=== PATIENT | female | born 2000 | race Caucasian/White ===

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

== ENCOUNTER 2018-01-27 23:24 | Emergency (ER) | payer MEDICAID ==
[~2018-01-27] VITALS: Ht 157.5 cm; Wt 47.1 kg
[~2018-01-27 23:24] MED LIST changes: +IBUP-1222 PO
[2018-01-28] MEDS ORDERED: ONDANSETRON ODT 4 MG PO ONE
[2018-01-28] MEDS ORDERED: MORPHINE SULFATE 4 MG/ML, 1ML IVPush PRN
[2018-01-28] MEDS ORDERED: ONDANSETRON ODT 4 MG ONE (00:22)
[2018-01-28] MEDS ORDERED: MORPHINE SULFATE 4 MG/ML, 1ML ONE (00:22)
[2018-01-28 00:25] LABS: HCG UR SG > 1.030 (1.003-1.030)
[2018-01-28 02:38] VITALS: BP 97/49
== END 2018-01-28 02:40 | disposition home or self-care (01) ==
LOC: ED 23:48
DX: S80.211A Abrasion, right knee, initial encounter (principal); S30.810A Abrasion of lower back and pelvis, initial encounter; K21.9 Gastro-esophageal reflux disease without esophagitis; J45.909 Unspecified asthma, uncomplicated; F17.210 Nicotine dependence, cigarettes, uncomplicated; Z88.0 Allergy status to penicillin; Y04.0XXA Assault by unarmed brawl or fight, initial encounter; Y93.89 Activity, other specified; Y92.89 Other specified places as the place of occurrence of the external cause; Y99.8 Other external cause status
CPT/HCPCS: 70450; 74176; 81025; 99285